=== PATIENT | male | born 1970 | race Caucasian/White ===

== ENCOUNTER 2016-09-04 17:47 | Inpatient (IN) | payer MEDICAID, OTHER ==
[2016-09-04 18:04] VITALS: BMI 18.1
--- NOTE | 2016-09-04 18:22 | C.PDOC ---
History Of Present Illness Patient is a 45 y/o male, with history of depression, and homelessness, that presents to the ER requesting detox from heroin. Denies any other drug or alcohol use. Patient states he "doesn't want to be here anymore." Notes injecting heroin. Otherwise, denies any SI/HI, or any other physical complaints at this time. Time Seen by Provider: 09/04/16 18:22 Chief Complaint (Nursing): Substance Abuse History Per: Patient History/Exam Limitations: no limitations Onset/Duration Of Symptoms: Gradual Current Symptoms Are (Timing): Still Present Suicide/Self Injury Attempted (Context): None Modifying Factor(s): Other (heroin) Severity: None Pain Scale Rating Of: 0 Associated Symptoms: denies: Suicidal Thoughts, Suicidal Plan Involuntary Hold By: None Recent travel outside of the [place]: No Additional History Per: Patient Past Medical History Reviewed: Historical Data, Nursing Documentation, Vital Signs Vital Signs: Last Vital Signs Temp 98.1 F 09/07/16 07:44 Pulse 82 09/07/16 15:53 Resp 20 09/07/16 07:44 BP 105/70 09/07/16 15:53 Pulse Ox 99 09/04/16 22:28 - Medical History PMH: Hepatitis (Hep C) Denies: Diabetes, HIV, HTN, Chronic Kidney Disease, Seizures, Sexually Transmitted Disease Surgical History: Appendectomy - [facility] DETOXIFICATION SERVICES FOR SUBSTANCE ABUSE TREATMENT (09/20/15) GROUP PSYCHOTHERAPY (09/20/15) Family History: States: Unknown Family Hx - Social History Hx Alcohol Use: No (UDS negative) Hx Substance Use: Yes (INJECTED) - Immunization History Hx Tetanus Toxoid Vaccination: No Hx Influenza Vaccination: No Hx Pneumococcal Vaccination: No Review Of Systems Except As Marked, All Systems Reviewed And Found Negative. Constitutional: Negative for: Fever, Chills Cardiovascular: Negative for: Chest Pain, Palpitations Respiratory: Negative for: Cough, Shortness of Breath Gastrointestinal: Negative for: Nausea, Vomiting, Abdominal Pain Neurological: Negative for: Weakness, Numbness, Headache, Dizziness Psych: Negative for: Suicidal ideation Physical Exam - Physical Exam Appears: Non-toxic, No Acute Distress Skin: Normal Color, Warm, Dry Head: Atraumatic, Normacephalic Eye(s): bilateral: Normal Inspection, EOMI Neck: Normal ROM, Supple Chest: Symmetrical Extremity: Normal ROM, No Deformity Extremity: Bilateral: Atraumatic Neurological/Psych: Oriented x3, Normal Speech, Normal Cognition ED Course And Treatment - Laboratory Results Result Diagrams: 09/04/16 21:02 09/04/16 21:02 O2 Sat by Pulse Oximetry: 100 Pulse Ox Interpretation: Normal Progress Note: Blood work, urinalysis, EKG ordered and reviewed. Disposition - Disposition Disposition: HOSPITALIZED Disposition Time: 21:54 Condition: STABLE - Clinical Impression Clinical Impression: Opiate dependence, Drug abuse - Scribe Statement The provider has reviewed the documentation as recorded by the Ozzyibradha Villasenor All medical record entries made by the Ozzyibradha were at my direction and personally dictated by me. I have reviewed the chart and agree that the record accurately reflects my personal performance of the history, physical exam, medical decision making, and the department course for this patient. I have also personally directed, reviewed, and agree with the discharge instructions and disposition.
[2016-09-04 20:23] LABS: URINE BACTERIA RARE (<OCC); URINE BILIRUBIN NEGATIVE (NEGATIVE); URINE BLOOD NEGATIVE (NEGATIVE); URINE CLARITY Clear (Clear); URINE COLOR Amber (YELLOW); URINE GLUCOSE (UA) NORMAL (Normal); URINE LEUKOCYTE ESTERASE NEG Leu/uL (Negative); URINE NITRATE NEGATIVE (NEGATIVE); URINE PROTEIN 1+ mg/dL (NEGATIVE)
[2016-09-04 20:27] LABS: BARBITURATES, UR NEGATIVE (NEGATIVE); BENZODIAZEPINES, UR NEGATIVE (NEGATIVE)
[2016-09-04 20:31] LABS: OPIATES, UR POSITIVE (NEGATIVE); PHENCYCLIDINE, UR NEGATIVE (NEGATIVE)
[2016-09-04 21:17] LABS: BASO % 0.4 % (0.0-2.0); EOS # 0.1 K/uL (0.0-0.7); EOS % 1.1 % (0.0-4.0); LYMPH # 1.9 K/uL (1.0-4.3); LYMPH % 16.9 % (20.0-40.0); MEAN CORPUSCULAR HEMOGLOBIN 25.9 pg (27.0-31.0); MEAN CORPUSCULAR HGB CONC 32.2 g/dL (33.0-37.0); MEAN PLATELET VOLUME 9.7 fL (7.2-11.7); MONO # 1.1 K/uL (0.0-0.8); NEUT % 71.6 % (50.0-75.0); RBC 3.5 Mil/uL (4.40-5.90); RED CELL DISTRIBUTION WIDTH 13.6 % (11.5-14.5); WHITE BLOOD COUNT 11.2 K/uL (4.8-10.8)
[2016-09-04 21:21] LABS: ALBUMIN 3.2 g/dL (3.5-5.0); HEMOGLOBIN 9.1 g/dL (12.0-18.0); MEAN CELL VOLUME 80.4 fL (80.0-94.0)
[2016-09-04 21:23] LABS: GFR AFRICAN-AMERICAN > 60; GFR NON-AFRICAN AMERICAN > 60
[2016-09-04 21:24] LABS: ALB/GLOB RATIO 0.9 (1.0-2.1); ALT/SGPT 48 U/L (21-72); AST/SGOT 43 U/L (17-59); BLOOD UREA NITROGEN 11 mg/dL (9-20); CALCIUM 8.3 mg/dl (8.6-10.4)
[2016-09-04 21:26] LABS: SALICYLATE < 1.0 mg/dL 1
[2016-09-04 21:32] LABS: ACETAMINOPHEN < 10.0 ug/mL (10.0-30.0)
[2016-09-04] MEDS ORDERED: Aluminum Hydroxide/Magnesium Hydroxide Susp (30 mL) PO PRN (22:49)
--- NOTE | 2016-09-05 10:31 | PCM.PSYCH ---
Initial Psychiatric Evaluation - Initial Psychiatric Evaluation Type of Admission: Voluntary Legal Status: Capacity Chief Complaint (in patient's own words): 'I was feeling suicidal' History of Present Illness and Precipitating Events: Patient is a 45 years-old male, who is homeless, presented to the ER with suicidal ideations and seeking detox for heroin. Patient states that he injected 10 bags of heroin yesterday, and came to the ER to seek detox. Patient states that he has a long history of heroin abuse, and has been using 20-30 bags per day since he was 18 years old. Patient reports of withdrawing from heroin, body aches, diarrhea, feeling cold, and agitated. Patient reports pain in his arms, and there is inflammation on his left arm for which medical consult is being requested. He states that he had suicidal ideation before coming to the hospital, but denies any previous suicide attempts. Patient reports that he has a history of being hospitalized for heroin detox, and his last hospitalization was in February [address] [facility] in [place], [place]. Besides history of heroin use since age 18, patient denies any other substance abuse. Patient denies any past psychiatric history. Patient reports history of incarceration for burglaries, and drug charges with sentences varying from 3-6 years. Patient still reports depressed mood and reports at times feelings of hopelessness or helplessness. He denies any hallucinations, and any homicidal ideations. Past medical history None Current Medications: Active Medications Generic Name Dose Route Start Last Admin Trade Name Freq PRN Reason Stop Dose Admin Acetaminophen 650 mg 09/04/16 22:49 Tylenol 325mg Tab PO Q4H PRN Fever greater than 101 F Al Hydrox/Mg Hydrox/Simethicone 30 ml 09/04/16 22:49 Maalox 30 Ml PO TID PRN Indigestion / Heartburn Benztropine Mesylate 2 mg 09/04/16 22:45 Cogentin PO Q6 PRN Extra Pyramidal Symptoms Clonidine HCl 0.1 mg 09/04/16 22:49 Catapres PO Q8 PRN COWS Score More or Equal to 5 Diphenhydramine HCl 50 mg 09/04/16 22:45 09/05/16 02:26 Benadryl PO 50 mg Q6 PRN Administration Extra Pyramidal Symptoms Haloperidol 5 mg 09/04/16 22:45 Haldol PO Q8 PRN Moderate Agitation Haloperidol Lactate 5 mg 09/04/16 22:45 Haldol IM Q8 PRN Moderate Agitation Lorazepam 1 mg 09/04/16 22:45 09/05/16 10:20 Ativan PO 1 mg Q6 PRN Administration Anxiety Ondansetron HCl 4 mg 09/04/16 22:49 Zofran Tab PO Q8 PRN Nausea/Vomiting Paroxetine HCl 10 mg 09/05/16 10:00 Paxil PO QAM SPRING Quetiapine Fumarate 50 mg 09/04/16 23:15 09/04/16 23:22 Seroquel PO 50 mg HS SPRING Administration Trazodone HCl 50 mg 09/04/16 22:45 09/05/16 04:51 Desyrel PO Not Given HS SPRING Past Psychiatric History - Past Psychiatric History Previous Treatment History: Inpatient At [facility]: [facility] Nature of Treatment: Detox for heroin History of Abuse: Heroin 20-30 bags/day Pertinent Medical Hx (Current Medical&Sleep Prob, Allergies): Allergies Allergy/AdvReac Type Severity Reaction Status Date / Time No Known Allergies Allergy Verified 09/04/16 18:02 No Known Home Med 09/04/16 Review of Systems - Review of Systems All systems: reviewed and no additional remarkable complaints except - Psychiatric Psychiatric: Anxiety, Change in Appetite, Depression, Difficulty Concentrating, Irritability, Suicidal Ideation Mental Status Examination - Personal Presentation Personal Presentation: Looks older than stated age - Affect Affect: Constricted, Blunted, Depressed - Motor Activity Motor Activity: Calm - Reliability in Providing Information Reliability in Providing Information: Poor, due to altered mood, Poor, due to cognitve impairment - Speech Speech: Relevant - Mood Mood: Depressed, Anxious - Formal Thought Process Formal Thought Process: No Impairment - Obsessions/Compulsions Obsessions: No Compulsions: No - Cognitive Functions Orientation: Person, Place, Situation, Time Sensorium: Alert Attention/Concentration: Attentive Abstract Thinking: [place] Estimate of Intelligence: Below average Judgement: Imparied, as evidence by: Poor judgement, Imparied, as evidence by: Lack of insight into illness - Risk Risk: Suicidal, Withdrawal - Strength & Assets Inventory Strength & Assets Inventory: Cooperative - Limitations Limitations: Living alone DSM 5 DX - DSM 5 DSM 5 Diagnosis: Major depressive disorder recurrent severe without psychotic features Opioid use disorder severe Opioid withdrawal - Recommended/Plan of Treatment Treatment Recommendations and Plan of Treatment: Major depressive disorder recurrent severe without psychotic features CBT Psychoeducation Supportive therapy, group therapy, individual therapy Paxil 10 mg by mouth daily Seroquel 50 mg by mouth qHS Trazodone 50 mg by mouth daily at bedtime Opioid use disorder severe CBT Psychoeducation Supportive therapy, individual therapy Use [place] for abstinence Opioid withdrawal CBT Psychoeducation Supportive therapy, individual therapy Clonidine when necessary Methadone taper
--- NOTE | 2016-09-06 13:48 | CARD ---
APPROVED REPORT EKG Measurement Heart [id number] <Conclusion> Normal sinus rhythm Minimal voltage criteria for LVH, may be normal variant Borderline ECG
--- NOTE | 2016-09-06 14:28 | PCM.PYCHPN ---
Psychiatric Progress Note - Psychiatric Progress Note Patient seen today, length of contact: 15 min Patient Chief Complaint: 'I am feeling depressed' Problems Identified/Issues Discussed: Patient is seen, evaluated, and case discussed with staff. Patient states that he feels depressed today. Patient states withdrawal symptoms including back ache, decreased appetite, abdominal cramps, hot and cold sweats and nausea. Patient appears disorganized, and remains isolated and withdrawn. Patient is complaint with all medications, and reports no side effects. Symptoms are improving but needs more time to stabilize. Support and psychoeducation given. Medication Change: Yes (Methadone taper) Medical Record Reviewed: Yes Mental Status Examination - Cognitive Function Orientation: Person, Place, Situation, Time Memory: Intact Attention: WNL Concentration: Poor Association: WNL Fund of Knowledge: Poor - Mood Mood: Depressed, Anxious - Affect Affect: Constricted, Blunted, Depressed - Speech Speech: Soft - Formal Thought Process Formal Thought Process: No Impairment - Suicidal Ideation Suicidal Ideation: No - Homicidal Ideation Homicidal Ideation: No Goal/Treatment Plan - Goal/Treatment Plan Need for Continued Stay: Remain at risks for inpatient hospitalization, Discharge may exacerbated symptoms Progress Toward Problem(s) and Goals/Treatment Plan: Major depressive disorder recurrent severe without psychotic features CBT Psychoeducation Supportive therapy, group therapy, individual therapy Paxil 10 mg by mouth daily Seroquel 50 mg by mouth qHS Trazodone 50 mg by mouth daily at bedtime Opioid use disorder severe CBT Psychoeducation Supportive therapy, individual therapy Use [place] for abstinence Opioid withdrawal CBT Psychoeducation Supportive therapy, individual therapy Clonidine when necessary Methadone taper - Smoking Cessation Smoking Cessation Initiated: No
--- NOTE | 2016-09-07 16:47 | PCM.PYCHPN ---
Psychiatric Progress Note - Psychiatric Progress Note Patient seen today, length of contact: 16 min Patient Chief Complaint: 'I have no energy today' Problems Identified/Issues Discussed: Patient is seen, evaluated, and case discussed with staff. Patient states that his mood feels better today, but he is very groggy and has decreased energy. Patient states that he has decreased appetite and is not able to eat much. Patient denies any other symptoms, except feeling fatigued and tired all the time. Patient appears disorganized, and remains isolated and withdrawn. Patient is complaint with all medications, and reports no side effects. Symptoms are improving but needs more time to stabilize. Support and psychoeducation given. Medication Change: Yes (Methadone taper) Medical Record Reviewed: Yes Mental Status Examination - Cognitive Function Orientation: Person, Place, Situation, Time Memory: Intact Attention: WNL Concentration: Poor Association: WNL Fund of Knowledge: Poor - Mood Mood: Depressed, Anxious - Affect Affect: Constricted, Blunted, Depressed - Speech Speech: Soft - Formal Thought Process Formal Thought Process: No Impairment - Suicidal Ideation Suicidal Ideation: No - Homicidal Ideation Homicidal Ideation: No Goal/Treatment Plan - Goal/Treatment Plan Need for Continued Stay: Remain at risks for inpatient hospitalization, Discharge may exacerbated symptoms Progress Toward Problem(s) and Goals/Treatment Plan: Major depressive disorder recurrent severe without psychotic features CBT Psychoeducation Supportive therapy, group therapy, individual therapy Paxil 10 mg by mouth daily Seroquel 50 mg by mouth qHS Trazodone 50 mg by mouth daily at bedtime Opioid use disorder severe CBT Psychoeducation Supportive therapy, individual therapy Use [place] for abstinence Opioid withdrawal CBT Psychoeducation Supportive therapy, individual therapy Clonidine when necessary Methadone taper
[2016-09-07 18:00] VITALS: O2SAT 100
--- NOTE | 2016-09-08 11:40 | RAD ---
HISTORY: coughing COMPARISON: No prior. TECHNIQUE: Chest PA and lateral FINDINGS: LUNGS: No active pulmonary disease. PLEURA: No significant pleural effusion identified. No pneumothorax apparent. CARDIOVASCULAR: Normal. OSSEOUS STRUCTURES: No significant abnormalities. VISUALIZED UPPER ABDOMEN: Normal. OTHER FINDINGS: None. IMPRESSION: No active disease.
--- NOTE | 2016-09-08 15:44 | PCM.PYCHPN ---
Psychiatric Progress Note - Psychiatric Progress Note Patient seen today, length of contact: 16 min Patient Chief Complaint: 'I have no energy' Problems Identified/Issues Discussed: Patient is seen, evaluated, and case discussed with staff. Patient states that his mood feels better, but states that he has no energy. Patient states that his decreased appetite has not improved much. Patient denies any other symptoms, except feeling fatigued and tired all the time. Patient appears disorganized, and remains isolated and withdrawn. Patient is complaint with all medications, and reports no side effects. Symptoms are improving but needs more time to stabilize. Support and psychoeducation given. Medication Change: Yes (Methadone taper) Medical Record Reviewed: Yes Mental Status Examination - Cognitive Function Orientation: Person, Place, Situation, Time Memory: Intact Attention: WNL Concentration: Poor Association: WNL Fund of Knowledge: Poor - Mood Mood: Depressed, Anxious - Affect Affect: Constricted, Blunted, Depressed - Speech Speech: Soft - Formal Thought Process Formal Thought Process: No Impairment - Suicidal Ideation Suicidal Ideation: No - Homicidal Ideation Homicidal Ideation: No Goal/Treatment Plan - Goal/Treatment Plan Need for Continued Stay: Remain at risks for inpatient hospitalization, Discharge may exacerbated symptoms Progress Toward Problem(s) and Goals/Treatment Plan: Major depressive disorder recurrent severe without psychotic features CBT Psychoeducation Supportive therapy, group therapy, individual therapy Paxil 10 mg by mouth daily Seroquel 50 mg by mouth qHS Trazodone 50 mg by mouth daily at bedtime Opioid use disorder severe CBT Psychoeducation Supportive therapy, individual therapy Use [place] for abstinence Opioid withdrawal CBT Psychoeducation Supportive therapy, individual therapy Clonidine when necessary Methadone taper
--- NOTE | 2016-09-09 11:10 | PCM.PYCHPN ---
Psychiatric Progress Note - Psychiatric Progress Note Patient seen today, length of contact: 16 min Patient Chief Complaint: 'I have no energy' Problems Identified/Issues Discussed: Patient is seen, evaluated, and case discussed with staff. Patient states that his mood feels better, but states that he is feeling depressed and has no energy. Patient states that his decreased appetite has not improved much. Patient denies any other symptoms, except feeling fatigued and tired all the time. Patient appears disorganized, and remains isolated and withdrawn. Patient is complaint with all medications, and reports no side effects. Symptoms are improving but needs more time to stabilize. Support and psychoeducation given. Medication Change: Yes (Methadone taper) Medical Record Reviewed: Yes Mental Status Examination - Cognitive Function Orientation: Person, Place, Situation, Time Memory: Intact Attention: WNL Concentration: Poor Association: WNL Fund of Knowledge: Poor - Mood Mood: Depressed, Anxious - Affect Affect: Constricted, Blunted, Depressed - Speech Speech: Soft - Formal Thought Process Formal Thought Process: No Impairment - Suicidal Ideation Suicidal Ideation: No - Homicidal Ideation Homicidal Ideation: No Goal/Treatment Plan - Goal/Treatment Plan Need for Continued Stay: Remain at risks for inpatient hospitalization, Discharge may exacerbated symptoms Progress Toward Problem(s) and Goals/Treatment Plan: Major depressive disorder recurrent severe without psychotic features CBT Psychoeducation Supportive therapy, group therapy, individual therapy Paxil 10 mg by mouth daily Seroquel 50 mg by mouth qHS Trazodone 50 mg by mouth daily at bedtime Opioid use disorder severe CBT Psychoeducation Supportive therapy, individual therapy Use [place] for abstinence Opioid withdrawal CBT Psychoeducation Supportive therapy, individual therapy Clonidine when necessary Methadone taper
--- NOTE | 2016-09-10 10:42 | PCM.PYCHPN ---
Psychiatric Progress Note - Psychiatric Progress Note Patient seen today, length of contact: 16 min Patient Chief Complaint: 'I have no energy' Problems Identified/Issues Discussed: Patient seen and evaluated, chart reviewed and discussed with the nurse. The patient reports improvement in his mood and reports somewhat improvement in his symptoms, but he remained isolated and continued to pace back and forth in the hallways. The pt is compliant with medications and reports no side-effects. Symptoms are improving but needs more time to stabilize. After care discussed, support and psychoeducation given. Medication Change: Yes (Methadone taper) Medical Record Reviewed: Yes Mental Status Examination - Cognitive Function Orientation: Person, Place, Situation, Time Memory: Intact Attention: WNL Concentration: Poor Association: WNL Fund of Knowledge: Poor - Mood Mood: Depressed, Anxious - Affect Affect: Constricted, Blunted, Depressed - Speech Speech: Soft - Formal Thought Process Formal Thought Process: No Impairment - Suicidal Ideation Suicidal Ideation: No - Homicidal Ideation Homicidal Ideation: No Goal/Treatment Plan - Goal/Treatment Plan Need for Continued Stay: Remain at risks for inpatient hospitalization, Discharge may exacerbated symptoms Progress Toward Problem(s) and Goals/Treatment Plan: Major depressive disorder recurrent severe without psychotic features CBT Psychoeducation Supportive therapy, group therapy, individual therapy Paxil 10 mg by mouth daily Seroquel 50 mg by mouth qHS Trazodone 50 mg by mouth daily at bedtime Opioid use disorder severe CBT Psychoeducation Supportive therapy, individual therapy Use [place] for abstinence Opioid withdrawal CBT Psychoeducation Supportive therapy, individual therapy Clonidine when necessary Methadone taper - Smoking Cessation Smoking Cessation Initiated: No
[2016-09-10] MEDS ORDERED: Magnesium Hydroxide Susp 30 ml UD PO ONE (18:31)
--- NOTE | 2016-09-11 18:48 | PCM.PYCHPN ---
Psychiatric Progress Note - Psychiatric Progress Note Patient seen today, length of contact: 16 min Patient Chief Complaint: 'I am feeling much better' Problems Identified/Issues Discussed: Patient is seen, evaluated, and case discussed with staff. Patient reports much impairment in his mood and appetite. He denies any feelings of hopelessness and helplessness. He denies any withdrawal symptoms. He denies any SI/HI/AVH. Patient is complaint with all medications, and reports no side effects. Symptoms are improving but needs more time to stabilize. Support and psychoeducation given. Medication Change: Yes (Methadone taper) Medical Record Reviewed: Yes Mental Status Examination - Cognitive Function Orientation: Person, Place, Situation, Time Memory: Intact Attention: WNL Concentration: WNL Association: WNL Fund of Knowledge: WNL - Mood Mood: Depressed, Anxious - Affect Affect: Constricted, Blunted, Depressed - Speech Speech: Soft - Formal Thought Process Formal Thought Process: No Impairment - Suicidal Ideation Suicidal Ideation: No - Homicidal Ideation Homicidal Ideation: No Goal/Treatment Plan - Goal/Treatment Plan Need for Continued Stay: Remain at risks for inpatient hospitalization, Discharge may exacerbated symptoms Progress Toward Problem(s) and Goals/Treatment Plan: Major depressive disorder recurrent severe without psychotic features CBT Psychoeducation Supportive therapy, group therapy, individual therapy Paxil 10 mg by mouth daily Seroquel 50 mg by mouth qHS Trazodone 50 mg by mouth daily at bedtime Opioid use disorder severe CBT Psychoeducation Supportive therapy, individual therapy Use [place] for abstinence Opioid withdrawal CBT Psychoeducation Supportive therapy, individual therapy Clonidine when necessary Methadone taper
[2016-09-12 09:35] VITALS: BP 122/78; PULSE 108; RESP 20; TEMP 97.6
--- NOTE | 2016-09-12 10:37 | PCM.PYCHDC ---
Mental Status Examination - Mental Status Examination Orientation: Person, Place, Situation, Time Memory: Intact Mood: Neutral Affect: Constricted Speech: Soft Attention: WNL Concentration: WNL Association: WNL Fund of Knowledge: WNL Formal Thought Process: No Impairment Description of patient's judgement and insight: good, fair Psychotic Thoughts and Behaviors: denies any AVH Suicidal Ideation: No Current Homicidal Ideation?: No Discharge Summary - Discharge Note Reason for Hospitalization: Patient is a 45 years-old male, who is homeless, presented to the ER with suicidal ideations and seeking detox for heroin. Patient states that he injected 10 bags of heroin yesterday, and came to the ER to seek detox. Patient states that he has a long history of heroin abuse, and has been using 20-30 bags per day since he was 18 years old. Patient reports of withdrawing from heroin, body aches, diarrhea, feeling cold, and agitated. Patient reports pain in his arms, and there is inflammation on his left arm for which medical consult is being requested. He states that he had suicidal ideation before coming to the hospital, but denies any previous suicide attempts. Patient reports that he has a history of being hospitalized for heroin detox, and his last hospitalization was in February 2016 at [facility] in [place], [place]. Besides history of heroin use since age 18, patient denies any other substance abuse. Patient denies any past psychiatric history. Patient reports history of incarceration for burglaries, and drug charges with sentences varying from 3-6 years. Patient still reports depressed mood and reports at times feelings of hopelessness or helplessness. He denies any hallucinations, and any homicidal ideations. Psychiatric History (includes Medical, Family, Personal Hx): Detox for heroin Consultations:: List each consultation separately and include: 1. Reason for request. 2. Findings. 3. Follow-up Summary of Hospital Course include:: 1. Description of specific treatment plan utilized for patients during their course of treatmen. 2. Summarize the time- course for resolution of acute symptoms and/or regressed behaviors. 3. Describe issues identified and worked on during hospitalization. 4. Describe medication utilized. 5. Describe medical problems identified and treated. 6. Reassessment of suicide risk Summary of Hospital Course: During the course of his stay, patient (pt) started progressively improving and he no longer remained irritable, depressed, suicidal and agitated. His mood and withdrawal symptoms were improved and he started attending groups and meetings and started socializing. Patient denied any feelings of hopelessness, helplessness, and worthlessness, denied any problem with the sleep or appetite, denied suicidal ideation or homicidal ideation. Pt denied any auditory or visual hallucinations. Some changes were made in his current medications and patient was discharged on following medications. He tolerated these medications very well and denied any side effects. - Final Diagnosis (DSM 5) Condition upon Discharge: STABLE DSM 5: Major depressive disorder recurrent moderate Opioid use disorder severe Opioid withdrawal Disposition: HOME/ ROUTINE Follow-up Treatment Plan: Education: Pt was educated and counseled about the risks and benefits of taking and not taking medications. Pt was educated and counseled about the risks of drinking and abusing drugs. Pt was educated and counseled to go to the ER or call 911 if pt develop suicidal ideation or homicidal ideation, worsening of symptoms or severe side effects of the meds. Prescriptions/Medication Reconciliation: PARoxetine [Paxil] 10 mg PO QAM #30 tab QUEtiapine [SEROquel] 50 mg PO BID #60 tab traZODone [Desyrel] 50 mg PO HS #30 tab - Smoking Cessation Smoking Cessation Medication prescribed: No - Antipsychotic Medications Pt discharged on 2 or more routine antipsychotic medications: No
== END 2016-09-12 11:35 | disposition home or self-care (01) | DRG 430 ==
LOC: C.ER 17:47 → C.9E 21:54 → C.5E 22:10
PROVIDERS: ADMIT Psychiatry & Neurology Psychiatry; ATTEND Psychiatry & Neurology Psychiatry
PROC: GZ3ZZZZ Medication Management (ICD-10-PCS; principal; 2016-09-04)
PROC: HZ2ZZZZ Detoxification Services for Substance Abuse Treatment (ICD-10-PCS; 2016-09-04)
PROC: HZ59ZZZ Individual Psychotherapy for Substance Abuse Treatment, Supportive (ICD-10-PCS; 2016-09-04)
PROC: GZHZZZZ Group Psychotherapy (ICD-10-PCS; 2016-09-04)
PROC: GZ56ZZZ Individual Psychotherapy, Supportive (ICD-10-PCS; 2016-09-04)
DX: F33.2 Major depressive disorder, recurrent severe without psychotic features (principal); R45.851 Suicidal ideations; F11.23 Opioid dependence with withdrawal; B18.2 Chronic viral hepatitis C; Z59.0 Homelessness; Z90.49 Acquired absence of other specified parts of digestive tract